=== PATIENT | male | born 1965 | race Two or more races ===

== ENCOUNTER 2017-03-13 05:42 | Day surgery (SDC) | payer BC ==
[~2017-03-13] VITALS: Ht 180.3 cm; Wt 65.8 kg
[2017-03-13] VITALS (9 sets, daily range): BP systolic 108–136; BP diastolic 61–86
[~2017-03-13 05:42] MED LIST: ADVAIR 250-501 EACH INH; FLONASE ALLERG9.9 ML NS; PROPECIA1 MG PO
--- NOTE | 2017-03-13 06:55 | Anethesia Preoperative Eval ---
Anesthesia Pre-op PMH/ROS General Date of Evaluation: Mar 13, 2017 Anesthesiologist: Landen ASA Score: ASA 3 Mallampati Score Class I : Soft palate, uvula, fauces, pillars visible Class II: Soft palate, uvula, fauces visible Class III: Soft palate, base of uvula visible Class IV: Only hard plate visible Mallampati Classification: Class II Surgeon: Mela Diagnosis: Screening Surgical Procedure: Colonoscopy Anesthesia History: none Family History: no anesthesia problems Allergies: Coded Allergies: SULFA (SULFONAMIDE ANTIBIOTICS) (Verified Adverse Reaction, Severe, ) nausea Medications: see eMAR Past Medical History Cardiovascular: Denies: CAD, HTN, MA, arrhythmia, other, valve dz Pulmonary: Reports: asthma, Denies: COPD, BARBARA, other Gastrointestinal/Genitourinary: Reports: other - h/o colon cancer, Denies: CRI, ESRD, GERD Neurologic/Psychiatric: Denies: CVA, TIA, dementia, depression/anxiety, other Endocrine: Denies: DM, hypothyroidism, other, steroids HEENT: Denies: CHIGNIK LAGOON (L), CHIGNIK LAGOON (R), cataract (L), cataract (R), glaucoma, other Hematology/Immune: Denies: DVT, anemia, bleeding disorder, other Musculoskeletal/Integumentary: Denies: DDD, DJD, OA, RA, edema, other PSxH Narrative: nose sx, LAR Anesthesia Pre-op Phys. Exam Physician Exam Last Vital Signs Date Time Temp Pulse Resp B/P Pulse Ox O2 Delivery O2 Flow Rate FiO2 03/13/17 06:23 98.1 71 20 136/77 99 Room Air Constitutional: NAD Cardiovascular: RRR Respiratory: CTA Airway Exam Mallampati Score: Class II MO: full ROM: full Teeth: intact Anesthesia Pre-op A/P Labs see chart Studies Pre-op Studies: EKG - r Risk Assessment & Plan Assessment: ASA III Plan: MAC Status Change Before Surgery: No Pre-Antibiotics Drug: N/A MARLENE ROBLERO M.D. Mar 13, 2017 06:55
--- NOTE | 2017-03-13 06:58 | Pre-Procedure Note/Attestation ---
Pre-Procedure Note/Attestation Complete Prior to Procedure Planned Procedure: not applicable Procedure Narrative: Colonoscopy, possible biopsy, polypectomy, hemostasis, submucosal injection Indications for Procedure Pre-Operative Diagnosis: history of rectosigmoid cancer Attestation I attest that I discussed the nature of the procedure; its benefits; risks and complications; and alternatives (and the risks and benefits of such alternatives ), prior to the procedure, with the patient (or the patient's legal sales representatives). I attest that, if there was a reasonable possibility of needing a blood transfusion, the patient (or the patient's legal sales representatives) was given the [place] [facility] Services standardized written summary, pursuant to the [place] Blood Safety Act ([place] Health and Safety Code # 1645, as amended). I attest that I re-evaluated the patient just prior to the surgery and that there has been no change in the patient's H&P, except as documented below: MYNOR GONZALEZ Mar 13, 2017 06:58
[2017-03-13] MEDS ORDERED: Lidocaine 1% MPF 10mg/ml 5ml ONE (07:00)
[2017-03-13] MEDS ORDERED: LR 1000ml ONE (07:00)
[2017-03-13] MEDS ORDERED: LR 1000ml 1,000 ML IVLG SCH ×2 (07:00→07:08)
[2017-03-13] MEDS ORDERED: Propofol 10mg/ml 20ml IV ONE (07:00)
--- NOTE | 2017-03-13 07:07 | Immediate Post-Op Evaluation ---
Immediate Post-Op Evalulation Immediate Post-Op Evalulation Procedure: Colonoscopy Date of Evaluation: Mar 13, 2017 Time of Evaluation: 07:38 IV Fluids: 400 Blood Products: 0 Estimated Blood Loss: 0 Urinary Output: 0 Blood Pressure Systolic: 108 Blood Pressure Diastolic: 61 Pulse Rate: 62 Respiratory Rate: 16 O2 Sat by Pulse Oximetry: 100 Temperature (Fahrenheit): 97.3 Pain Score (1-10): 0 Nausea: No Vomiting: No Complications 0 Patient Status: awake, reacts, patent, none Hydration Status: adequate Drug: N/A MARLENE ROBLERO M.D. Mar 13, 2017 07:07
--- NOTE | 2017-03-13 07:08 | 48 Hour Post Anesthesia Eval ---
Post Anesthesia Evaluation Procedure: Colonoscopy Date of Evaluation: Mar 13, 2017 Time of Evaluation: 08:45 Blood Pressure Systolic: 136 0: 71 Pulse Rate: 50 Respiratory Rate: 18 Temperature (Fahrenheit): 97.5 O2 Sat by Pulse Oximetry: 98 Airway: patent Nausea: No Vomiting: No Pain Intensity: 0 Hydration Status: adequate Cardiopulmonary Status: at baseline Mental Status/LOC: patient returned to baseline Post-Anesthesia Complications: 0 Follow-up care needed: ready to discharge MARLENE ROBLERO M.D. Mar 13, 2017 07:08
[2017-03-13] MEDS ORDERED: DiphenhydrAMINE 50mg/ml Inj IVP PRN (07:15)
[2017-03-13] MEDS ORDERED: fentaNYL 100 mcg/2 mL IV PRN (07:15)
--- NOTE | 2017-03-13 07:38 | Endoscopy Procedure Note ---
Endoscopy Procedure Note Procedures Performed: colonoscopy Specimen: yes Pt Tolerated Procedure Well: Yes Estimated Blood Loss: minimal Anesthesiologist: Macarena Schuster MD Anesthesia: moderate sedation Medication Given: see anesthesia record Implant(s) used?: No 50 yrs or older w/o bx or poly: No 10yrs. F/U not recommended: No If not recommended, why?: Above average risk MYNOR GONZALEZ Mar 13, 2017 07:38
--- NOTE | 2017-03-13 07:39 | Discharge Instructions ---
Discharge Instructions Discharge Instructions Diet: regular Activity: as tolerated Follow Up Orders - avoid Aspirin and NSAIDS for 1 week - Dr. Gonzalez with call with results For Congestive Heart Failure Reminder Report to your physician any weight gain of 5 pounds or more in one week. MYNOR GONZALEZ Mar 13, 2017 07:39
--- NOTE | 2017-03-13 10:45 | Operative Note - Dictated ---
PREPROCEDURE DIAGNOSIS: History of rectosigmoid cancer. POSTPROCEDURE DIAGNOSIS: History of rectosigmoid cancer. PROCEDURE: Colonoscopy with cold forceps biopsy. SURGEON: Sharonda Plaza M.D. ANESTHESIOLOGIST: . ANESTHESIA: Propofol sedation. INDICATION FOR PROCEDURE: The patient is a 52-year-old male, who underwent a robotic low anterior resection by hi on April 2016 for rectosigmoid cancer. The patient has and is being followed by his oncologist, Dr. Alonso Mc. The patient had no chemotherapy. In light of the patient's history is difficult to determine the extent to proceed with a follow up colonoscopy. DESCRIPTION OF PROCEDURE: Upon consent of the patient, the patient was brought to the procedure room and placed in a left lateral decubitus position. Once adequate sedation had been established with propofol drip, visual rectal exam was performed, which showed some moderate internal hemorrhoids. The Olympus colonoscope was advanced into the anus and into the rectum. The descending colon, splenic flexure, traverse colon, hepatic flexure, and ascending colon visualized. Cecum was easily reached and the ileocecal valve and appendiceal orifice were identified. The patient's prep noted to be good. The terminal ileum was intubated and was noted to be normal. Colonoscope was slowly withdrawn and there is noted to be a previous tattoo [place] from his previous colonoscopy. The anastomotic line was examined and there was noted to be an area where the previous sacral was with some granulation tissue. This was biopsied and sent off the field as a specimen. The post biopsy site was noted to have no active bleeding. Air was evacuated from the rectum and the colonoscope was removed. The patient was awakened from anesthesia, brought to postanesthesia recovery room in stable condition. IMPRESSION: Status post low anterior resection, granulation tissue at the anastomotic line, and moderate internal hemorrhoids. PLAN: Repeat colonoscopy in two years, continue high-fiber diet, yearly follow up. Sharonda Plaza M.D. DR: ABE JOB#: [id number] CC: Sharonda Plaza M.D.; Fax#: [phone] Lamar M.D.
== END 2017-03-13 08:55 | disposition home or self-care (01) ==
LOC: GAS 05:42
DX: Z85.048 Personal history of other malignant neoplasm of rectum, rectosigmoid junction, and anus (principal); K52.9 Noninfective gastroenteritis and colitis, unspecified; K63.89 Other specified diseases of intestine; K64.8 Other hemorrhoids; J45.909 Unspecified asthma, uncomplicated; Z88.2 Allergy status to sulfonamides
CPT/HCPCS: 45380; J2704; J7120; 94003; 94150

== ENCOUNTER 2019-05-06 06:00 | Day surgery (SDC) | payer BC ==
[~2019-05-06] VITALS: Ht 181.6 cm; Wt 64.4 kg
[2019-05-06] VITALS (9 sets, daily range): BP systolic 91–135; BP diastolic 54–85
--- NOTE | 2019-05-06 06:29 | Pre-Procedure Note/Attestation ---
Pre-Procedure Note/Attestation Complete Prior to Procedure Planned Procedure: not applicable Procedure Narrative: Colonoscopy, possible biopsy, polypectomy, hemostasis, submucosal injection Indications for Procedure Pre-Operative Diagnosis: history of colon cancer Attestation I attest that I discussed the nature of the procedure; its benefits; risks and complications; and alternatives (and the risks and benefits of such alternatives ), prior to the procedure, with the patient (or the patient's legal member services representative). I attest that, if there was a reasonable possibility of needing a blood transfusion, the patient (or the patient's legal member services representative) was given the [facility] standardized written summary, pursuant to the [place] [place] Blood Safety Act ([place] Health and Safety Code # 1645, as amended). I attest that I re-evaluated the patient just prior to the surgery and that there has been no change in the patient's H&P, except as documented below: Sharonda Plaza MD May 06, 2019 06:29
[2019-05-06] MEDS ORDERED: Propofol 200mg/20ml IV ONE (06:51)
[2019-05-06] MEDS ORDERED: LR 1000ml ONE (06:51)
[2019-05-06] MEDS ORDERED: Lidocaine 1% MPF 10mg/ml 5ml ONE (06:51)
[2019-05-06] MEDS ORDERED: LR 1000ml 1,000 ML IVLG SCH (07:13)
[2019-05-06] MEDS ORDERED: LORazepam Inj 2mg/ml 1ml IV PRN (07:15)
[2019-05-06] MEDS ORDERED: Midazolam 2mg/2ml Inj IVP PRN (07:15)
[2019-05-06] MEDS ORDERED: HYDROcodone/Acetamin 7.5/325 tab ORAL PRN (07:15)
[2019-05-06] MEDS ORDERED: HYDROcodone/Acetamin 5/325 tab ORAL PRN (07:15)
[2019-05-06] MEDS ORDERED: fentaNYL 100 mcg/2 mL IV PRN (07:15)
[2019-05-06] MEDS ORDERED: oxyCODONE HCL/Acetaminophen 5/325mg ORAL PRN (07:15)
[2019-05-06] MEDS ORDERED: Meperidine 50mg/ml Inj(FOR RIGORS ONLY) IVP PRN (07:15)
[2019-05-06] MEDS ORDERED: Ketorolac 30mg Inj IV PRN ×2 (07:15)
[2019-05-06] MEDS ORDERED: Metoclopramide 10mg/2ml Inj IVP PRN (07:15)
[2019-05-06] MEDS ORDERED: DiphenhydrAMINE 50mg/ml Inj IVP PRN (07:15)
[2019-05-06] MEDS ORDERED: Labetalol 5mg/ml 20ml vial IV PRN (07:15)
[2019-05-06] MEDS ORDERED: Hydromorphone 0.5mg/0.5ml inj IVP PRN (07:15)
[2019-05-06] MEDS ORDERED: Atropine Sulfate 0.4mg/ml inj IVP PRN (07:15)
--- NOTE | 2019-05-06 07:18 | Anethesia Preoperative Eval ---
Anesthesia Pre-op PMH/ROS General Date of Evaluation: May 06, 2019 Time of Evaluation: 06:51 Anesthesiologist: Richard ASA Score: ASA 3 Mallampati Score Class I : Soft palate, uvula, fauces, pillars visible Class II: Soft palate, uvula, fauces visible Class III: Soft palate, base of uvula visible Class IV: Only hard plate visible Mallampati Classification: Class II Surgeon: Mela Diagnosis: Sigmoid CA Surgical Procedure: Colonoscopy Anesthesia History: none Family History: no anesthesia problems Allergies: Coded Allergies: ERYTHROMYCIN BASE (Verified Allergy, Severe, NAUSEA, 05/06/19) Medications: see eMAR Patient NPO?: Yes Past Medical History Pulmonary: Reports: asthma Gastrointestinal/Genitourinary: Reports: other - Sigmoid CA PSxH Narrative: Low Ant Resection Anesthesia Pre-op Phys. Exam Physician Exam Last Vital Signs Date Time Temp Pulse Resp B/P (MAP) Pulse Ox O2 Delivery O2 Flow Rate FiO2 05/06/19 06:55 Room Air 05/06/19 06:32 97.0 69 18 135/85 96 Constitutional: NAD Neurologic: CN 2-12 intact Cardiovascular: RRR Respiratory: CTA Gastrointestinal: S/NT/ND Airway Exam Mallampati Score: Class II MO: full ROM: full Teeth: intact Anesthesia Pre-op A/P Risk Assessment & Plan Assessment: ASA 3 Plan: GA Status Change Before Surgery: Romero Caicedo MD May 06, 2019 07:18
--- NOTE | 2019-05-06 07:24 | Immediate Post-Op Evaluation ---
Immediate Post-Op Evalulation Immediate Post-Op Evalulation Procedure: Colonoscopy Date of Evaluation: May 06, 2019 Time of Evaluation: 08:04 IV Fluids: 700 LR Blood Products: 0 Estimated Blood Loss: 10 Urinary Output: 0 Blood Pressure Systolic: 91 Blood Pressure Diastolic: 52 Pulse Rate: 62 Respiratory Rate: 16 O2 Sat by Pulse Oximetry: 100 Temperature (Fahrenheit): 97.5 Pain Score (1-10): 2 Nausea: No Vomiting: No Complications 0 Patient Status: awake, reacts, patent, none Hydration Status: adequate Romero Ramos MD May 06, 2019 07:24
--- NOTE | 2019-05-06 07:25 | 48 Hour Post Anesthesia Eval ---
Post Anesthesia Evaluation Procedure: Colonoscopy Date of Evaluation: May 06, 2019 Time of Evaluation: 10:12 Blood Pressure Systolic: 127 0: 78 Pulse Rate: 62 Respiratory Rate: 18 Temperature (Fahrenheit): 98.2 O2 Sat by Pulse Oximetry: 99 Airway: patent Nausea: No Vomiting: No Pain Intensity: 2 Hydration Status: adequate Cardiopulmonary Status: Stable Mental Status/LOC: patient returned to baseline Follow-up Care/Observations: 0 Post-Anesthesia Complications: 0 Follow-up care needed: ready to discharge Romero Ramos MD May 06, 2019 07:25
--- NOTE | 2019-05-06 07:40 | Endoscopy Procedure Note ---
Endoscopy Procedure Note General Procedures Performed: colonoscopy Operative Findings/Diagnosis: anastomosis normal Specimen: yes Pt Tolerated Procedure Well: Yes Estimated Blood Loss: none Anesthesia Anesthesiologist: Romero Ramos MD Anesthesia: moderate sedation Medications Medication Given: see anesthesia record Inserted Devices Implant(s) used?: No Quality Quality of Bowel Preparation: Good Did scope reach the cecum?: Yes Was there any complications?: No GI Core Measures 50 yrs or older w/o bx or poly: Yes 10yrs. F/U recommended: No If not recommended, why?: Above average risk Sharonda Plaza MD May 06, 2019 07:40
--- NOTE | 2019-05-06 08:45 | Operative Note - Dictated ---
DATE OF OPERATION: 05/06/2019 PREPROCEDURE DIAGNOSIS: History of sigmoid cancer. POSTPROCEDURE DIAGNOSIS: History of sigmoid cancer. PROCEDURE: Colonoscopy. SURGEON: Sharonda Plaza M.D. ANESTHESIOLOGIST: Romero Ramos M.D. ANESTHESIA: Propofol sedation. INDICATION FOR PROCEDURE: The patient is a 54-year-old, male, who underwent a robotic low anterior resection by ca in April 2016. The patient was found to have early sigmoid cancer with lower sigmoid cancer with negative lymph nodes. The patient did not require any chemotherapy. The patient's last colonoscopy was done by ca on 03/13/2017, which was negative. In light of the patient's history of cancer, it was determined at this time to proceed with a followup colonoscopy. DESCRIPTION OF PROCEDURE: Upon consent of the patient, the patient was brought to the procedure room and placed in a left lateral decubitus position. Once adequate sedation had been established with propofol drip, anal Pap smear was performed, which was sent off the field for cytology. Digital rectal exam was performed, which showed some mild internal hemorrhoids and a smooth prostate. The Olympus colonoscope was advanced through the anus into the rectum through the descending colon, splenic flexure, traverse colon, hepatic flexure, ascending colon were visualized. The cecum was easily reached. The ileocecal valve and appendiceal orifice were identified. The patient's prep was fairly good. Terminal ileum was intubated and was noted to be normal. The colonoscope was slowly withdrawn. There was noted to be no polyps, masses, or colitis. Upon reaching the area of anastomosis, there was no stenosis and the area of the tattoo was noted. Upon reaching the rectum, the colonoscope was retroflexed and noted to be mild internal hemorrhoids. The scope was straightened, air was evacuated from the rectum, the colonoscope was removed. The patient was awakened from anesthesia and brought to postanesthesia recovery in stable condition. There were no complications. IMPRESSION: Moderate internal hemorrhoids. PLAN: Repeat colonoscopy in 3 years, continue high-fiber diet, yearly follow up. Sharonda Plaza M.D. DR: SHABANA JOB#: [id number] CC: Sharonda Plaza M.D.; Fax#: [phone] Ebony Davis M.D.
== END 2019-05-06 09:10 | disposition home or self-care (01) ==
LOC: GAS 06:00
DX: K64.8 Other hemorrhoids (principal); Z85.038 Personal history of other malignant neoplasm of large intestine; Z88.8 Allergy status to other drugs, medicaments and biological substances
CPT/HCPCS: 45378; J2250; J2704; 94003; 94150